=== PATIENT | female | born 1970 | race Caucasian/White ===

== ENCOUNTER 2016-05-29 04:08 | Emergency (ER) | payer SELFPAY ==
[2016-05-29 04:52] VITALS: BP 131/85
== END 2016-05-29 09:21 | disposition left against medical advice (07) ==
LOC: ED 04:08
DX: R06.02 Shortness of breath (principal); R05 Cough; Z53.21 Procedure and treatment not carried out due to patient leaving prior to being seen by health care provider

== ENCOUNTER 2019-02-24 07:25 | Emergency (ER) | payer SELFPAY ==
[2019-02-24] MEDS ORDERED: HALOPERIDOL LACTATE 5 MG/1 ML INJ IM ONE (09:09)
[2019-02-24] MEDS ORDERED: SODIUM CHLORIDE 0.9% 1000 ML 1,000 ML IV ONE (09:10)
--- NOTE | 2019-02-24 09:52 | XRay Report ---
ABDOMEN 4 VIEW(S) INDICATION / CLINICAL INFORMATION: MAIN: abdomen pain. COMPARISON: None available. FINDINGS: TUBES / LINES: None. BOWEL GAS PATTERN: No significant abnormality. FREE AIR / EXTRALUMINAL GAS: None seen. ADDITIONAL FINDINGS: No significant additional findings. IMPRESSION: 1. No significant abnormality. Signer Name: Kosta Rm MD Signed: 02/24/2019 9:47 AM Workstation Name: [id number]
[2019-02-24 10:19] LABS: Alanine Aminotransferase 41 units/L (7-56); Albumin 4.4 g/dL (3.9-5); BUN/Creatinine Ratio 40; Blood Urea Nitrogen 16 mg/dL (7-17); Calcium 9.8 mg/dL (8.4-10.2); Hemolysis Index 9
[2019-02-24] MEDS ORDERED: KETOROLAC 30 MG/1 ML INJ ONE (10:20)
[2019-02-24] MEDS ORDERED: KETOROLAC 30 MG/1 ML INJ IV ONE (10:21)
--- NOTE | 2019-02-24 11:47 | Emergency Department Report ---
ED Abdominal Pain HPI - General Chief Complaint: Abdominal Pain Stated Complaint: FALL/HEAD TRAUMA/ABD PAIN Time Seen by Provider: 02/24/19 09:08 Source: patient Mode of arrival: Ambulatory Limitations: No Limitations - History of Present Illness Initial Comments: Reports hx of chronic pancreatitis. Reports symptoms feel like past flares of pancreatitis. MD Complaint: abdominal pain -: Gradual Location: diffuse Radiation: none Migration to: no migration Severity scale (0 -10): 2 Quality: cramping Consistency: intermittent Improves With: nothing Worsens With: nothing Associated Symptoms: nausea, vomiting. denies: diarrhea, chills, constipation, dysuria, hematemesis, melena, hematuria, syncope - Related Data Previous Rx's Medication Instructions Recorded Last Taken Type HYDROcodone/APAP 5-325 [Bethany 1 each PO Q6HR PRN #12 tablet 04/19/16 Unknown Rx 5/325] Promethazine [Phenergan] 25 mg PO Q6HR PRN #20 tab 04/19/16 Unknown Rx amLODIPine 5 mg PO QDAY #30 tablet 04/19/16 Unknown Rx Dicyclomine [Bentyl] 10 mg PO QID PRN #14 capsule 02/24/19 Unknown Rx Allergies Allergy/AdvReac Type Severity Reaction Status Date / Time No Known Allergies Allergy Verified 04/15/16 13:17 ED Review of Systems ROS: Stated complaint: FALL/HEAD TRAUMA/ABD PAIN Other details as noted in HPI Other: GENERAL: No weight change, fatigue, fever, chills, or night sweats SKIN: No changes in skin or hair, no itching, no rashes, no jaundice HEAD: No trauma EYES: No blurriness, tearing, itching, acute visual loss, conjunctival discoloration, or scleral icterus EARS: No hearing loss, tinnitus, vertigo, or earache NOSE: No rhinorrhea, stuffiness, sneezing, itching, or epistaxis MOUTH: No bleeding gums, hoarseness, sore throat, or swelling CARDIAC: No new murmur, chest pain, palpitations, dyspnea on exertion, orthopnea, PND, or edema RESPIRATORY: No shortness of breath, wheeze, cough, sputum production, hemoptysis GI: Abdominal pain, nausea, vomiting. No diarrhea, constipation, hematemesis, melena, hematochezia URINARY: No frequency, urgency, polyuria, dysuria, hematuria, or incontinence MUSCULOSKELETAL: No muscle weakness, joint stiffness, decrease in range of motion, redness, swelling NEUROLOGIC: No headache, syncope, loss of sensation, numbness, tingling, tremors, weakness, paralysis, seizures HEMATOLOGIC: No anemia, easy bruising, bleeding, petechiae, or purpura ENDOCRINE: No hot or cold intolerance, sweating, polyuria, polydipsia or, polyphagia no thyroid problems PSYCHIATRIC: No change in mood, no anxiety, no depression ED Past Medical Hx - Past Medical History Previous Medical History?: Yes Hx Hypertension: Yes (11/2015) Hx Asthma: Yes Hx Tuberculosis: No Hx HIV: No Additional medical history: pancreatitis - Surgical History Past Surgical History?: Yes Additional Surgical History: LEFT knee surgery - Social History Smoking Status: Never Smoker Substance Use Type: None - Medications Home Medications: Home Medications Medication Instructions Recorded Confirmed Last Taken Type HYDROcodone/APAP 5-325 [Bethany 1 each PO Q6HR PRN #12 tablet 04/19/16 Unknown Rx 5/325] Promethazine [Phenergan] 25 mg PO Q6HR PRN #20 tab 04/19/16 Unknown Rx amLODIPine 5 mg PO QDAY #30 tablet 04/19/16 Unknown Rx Dicyclomine [Bentyl] 10 mg PO QID PRN #14 capsule 02/24/19 Unknown Rx ED Physical Exam - General Limitations: No Limitations - Other Other exam information: GENERAL: Patient in no acute distress HEAD: Normocephalic, atraumatic EYES: PERRLA, EOM intact, no scleral icterus, no conjunctival hemorrhage, visual rosario and acuity wnl NOSE: No tenderness, discharge, sinus tenderness MOUTH: No erythema, bleeding, exudate HEART: Regular rate and rhythm, no murmur, S1-S2 are auscultated, no edema, pulses are symmetric LUNGS: No respiratory distress. Bilateral breath sounds, No tachypnea, No retractions, No wheezing, rales, rhonchi ABDOMEN: Normal bowel sounds, abdomen soft, no tenderness, no rebound, no gu arding, no distention, no masses, no CVA tenderness MUSCULOSKELETAL: Normal joint range of motion, no redness, no swelling, no tenderness NEUROLOGIC: GCS 15, Alert and Oriented x3, Cranial nerves intact, normal sensation, normal strength, no cerebellar deficit, NIHSS 0 PSYCHIATRIC: Writhing in bed reporting her stomach hurts like past flares of pancreatitis. Patient distractable and while talking stops squirming. No homicidal or suicidal ideation, no anxiety, no depression, no hallucinations SKIN: Skin is warm and dry, no wounds, no rashes ED Course Vital Signs 02/24/19 07:59 Temperature 99 F Pulse Rate 105 H Respiratory 16 Rate Blood Pressure 106/62 O2 Sat by Pulse 99 Oximetry ED Medical Decision Making - Lab Data Result diagrams: 02/24/19 09:45 Laboratory Results - last 24 hr 02/24/19 09:45 Sodium 134 L Potassium 3.6 Chloride 88.8 L Carbon Dioxide 19 L Anion Gap 30 BUN 16 Creatinine 0.4 L Estimated GFR > 60 BUN/Creatinine Ratio 40 Glucose 140 H Calcium 9.8 Total Bilirubin 1.90 H AST 72 H ALT 41 Alkaline Phosphatase 121 Total Protein 7.3 Albumin 4.4 Albumin/Globulin Ratio 1.5 Lipase 295 H - Radiology Data Radiology results: report reviewed - Medical Decision Making Patient comfortable. Reports symptom improvement. Updated with results. Plan discharge with outpatient follow up. Return if any worsening. Critical care attestation.: If time is entered above; I have spent that time in minutes in the direct care of this critically ill patient, excluding procedure time. ED Disposition Clinical Impression: Pancreatitis Qualifiers: Chronicity: chronic Pancreatitis type: unspecified pancreatitis type Qualified Code(s): K86.1 - Other chronic pancreatitis Disposition: TO HOME OR SELFCARE Is pt being admited?: No Condition: Stable Instructions: Pancreatitis (ED), Abdominal Pain (ED) Prescriptions: Dicyclomine [Bentyl] 10 mg PO QID PRN #14 capsule PRN Reason: Cramping Referrals: [facility] [Provider Group] - 2-3 Days CAILIN MALIK MD [Referring] - 2-3 Days [facility] [Outside] - as needed Time of Disposition: 11:46
[2019-02-24 12:08] VITALS: BP 143/86
== END 2019-02-24 12:30 | disposition home or self-care (01) ==
LOC: ED 07:25
DX: K85.90 Acute pancreatitis without necrosis or infection, unspecified (principal); I10 Essential (primary) hypertension; J45.909 Unspecified asthma, uncomplicated; Z98.890 Other specified postprocedural states; Z79.899 Other long term (current) drug therapy
CPT/HCPCS: 36415; 74022; 80053; 83690; 96361; 96372; 96374; 99283; J1630; J1885; J7030

== ENCOUNTER 2019-07-02 12:40 | Emergency (ER) | payer SELFPAY ==
--- NOTE | 2019-07-02 13:54 | Event Note ---
ED Screening Note Date of service: 07/02/19 Time: 13:53 ED Screening Note: This 49-year-old female with a history of pancreatitis who presents ED with abdominal pain vomiting nausea Low-grade fever and tachycardia. This initial assessment/diagnostic orders/clinical plan/treatment(s) is/are subj ect to change based on patients health status, clinical progression and re- assessment by fellow clinical providers in the ED. Further treatment and workup at subsequent clinical providers discretion. Patient/guardian urged not to elope from the ED as their condition may be serious if not clinically assessed and managed. Initial orders include: CT scan, abdominal pain protocol ordered.
[2019-07-02 14:48] LABS: Basophils % (Auto) 0.5 % (0.0-1.8); Eosinophils % (Auto) 0.5 % (0.0-4.3); Hematocrit 40.7 % (30.3-42.9); Hemoglobin 13.8 gm/dl (10.1-14.3); Lymphocytes # (Auto) 0.9 K/mm3 (1.2-5.4); Lymphocytes % (Auto) 19.3 % (13.4-35.0); Mean Corpuscular HGB Conc 34 % (30-34); Mean Corpuscular Volume 97 fl (79-97); Monocytes # (Auto) 0.4 K/mm3 (0.0-0.8); Monocytes % (Auto) 9.9 % (0.0-7.3); Red Blood Count 4.22 M/mm3 (3.65-5.03); Red Cell Distribution Width 13.9 % (13.2-15.2)
[2019-07-02 14:56] LABS: Alanine Aminotransferase 87 units/L (7-56); Albumin 4.2 g/dL (3.9-5); BUN/Creatinine Ratio 40; Blood Urea Nitrogen 12 mg/dL (7-17); Calcium 8.7 mg/dL (8.4-10.2); Hemolysis Index 3
[2019-07-02 15:07] LABS: Platelet Count 36 K/mm3 (140-440)
[2019-07-02] MEDS ORDERED: MORPHINE 4 MG/1 ML INJ IV ONE (16:15)
[2019-07-02] MEDS ORDERED: ONDANSETRON 4 MG/2 ML INJ IV ONE (16:15)
[2019-07-02] MEDS ORDERED: SODIUM CHLORIDE 0.9% 1000 ML 1,000 ML IV ONE ×2 (16:15→19:33)
[2019-07-02] MEDS ORDERED: ACETAMINOPHEN 325 MG/10.15 ML ORAL LIQD UNIT DOSE PO ONE (16:16)
[2019-07-02] MEDS ORDERED: LORazepam 2 MG/ML VIAL IV PRN ×3 (16:16)
--- NOTE | 2019-07-02 16:18 | Emergency Department Report ---
<MARY ZELAYA - Last Filed: 07/02/19 23:07> ED General Adult HPI - General Chief complaint: Nausea/Vomiting/Diarrhea Stated complaint: VOMIT BLOOD Time Seen by Provider: 07/02/19 15:26 - Related Data Previous Rx's Medication Instructions Recorded Last Taken Type Promethazine [Phenergan] 25 mg PO Q6HR PRN #20 tab 04/19/16 Unknown Rx amLODIPine 5 mg PO QDAY #30 tablet 04/19/16 Unknown Rx Dicyclomine [Bentyl] 10 mg PO QID PRN #14 capsule 02/24/19 Unknown Rx Magnesium Oxide [Magnesium Oxide 400 mg PO QDAY #30 powd.pack 07/02/19 Unknown Rx 400] Metoclopramide [Reglan] 10 mg PO Q6HR PRN #30 tab 07/02/19 Unknown Rx Multivitamin with Folic Acid [Cvs 400 mcg PO QDAY #30 tablet 07/02/19 Unknown Rx One Daily Essential Tablet] Potassium Chloride 20 meq PO BID #30 packet 07/02/19 Unknown Rx chlordiazePOXIDE [Librium] 25 mg PO Q6H PRN #30 capsule 07/02/19 Unknown Rx Allergies Allergy/AdvReac Type Severity Reaction Status Date / Time No Known Allergies Allergy Verified 04/15/16 13:17 ED Past Medical Hx - Medications Home Medications: Home Medications Medication Instructions Recorded Confirmed Last Taken Type Promethazine [Phenergan] 25 mg PO Q6HR PRN #20 tab 04/19/16 Unknown Rx amLODIPine 5 mg PO QDAY #30 tablet 04/19/16 Unknown Rx Dicyclomine [Bentyl] 10 mg PO QID PRN #14 capsule 02/24/19 Unknown Rx Magnesium Oxide [Magnesium Oxide 400 mg PO QDAY #30 powd.pack 07/02/19 Unknown Rx 400] Metoclopramide [Reglan] 10 mg PO Q6HR PRN #30 tab 07/02/19 Unknown Rx Multivitamin with Folic Acid [Cvs 400 mcg PO QDAY #30 tablet 07/02/19 Unknown Rx One Daily Essential Tablet] Potassium Chloride 20 meq PO BID #30 packet 07/02/19 Unknown Rx chlordiazePOXIDE [Librium] 25 mg PO Q6H PRN #30 capsule 07/02/19 Unknown Rx ED Medical Decision Making - Lab Data Result diagrams: 07/02/19 14:10 07/02/19 14:10 Lab Results 07/02/19 07/02/19 07/02/19 Range/Units 14:10 14:10 14:10 WBC 4.5 (4.5-11.0) K/mm3 RBC 4.22 (3.65-5.03) M/mm3 Hgb 13.8 (10.1-14.3) gm/dl Hct 40.7 (30.3-42.9) % MCV 97 (79-97) fl MCH 33 H (28-32) pg MCHC 34 (30-34) % RDW 13.9 (13.2-15.2) % Plt Count 36 L (140-440) K/mm3 Lymph % (Auto) 19.3 (13.4-35.0) % [place] % (Auto) 9.9 H (0.0-7.3) % Eos % (Auto) 0.5 (0.0-4.3) % Baso % (Auto) 0.5 (0.0-1.8) % Lymph # 0.9 L (1.2-5.4) K/mm3 [place] # 0.4 (0.0-0.8) K/mm3 Eos # 0.0 (0.0-0.4) K/mm3 Baso # 0.0 (0.0-0.1) K/mm3 Seg Neutrophils % 69.8 (40.0-70.0) % Seg Neutrophils # 3.2 (1.8-7.7) K/mm3 PT (12.2-14.9) Sec. INR (0.87-1.13) D-Dimer (0-234) ng/mlDDU Sodium 140 (137-145) mmol/L Potassium 3.2 L (3.6-5.0) mmol/L Chloride 95.4 L (98-107) mmol/L Carbon Dioxide 26 (22-30) mmol/L Anion Gap 22 mmol/L BUN 12 (7-17) mg/dL Creatinine 0.3 L (0.7-1.2) mg/dL Estimated GFR > 60 ml/min BUN/Creatinine Ratio 40 % Glucose 134 H (65-100) mg/dL Lactic Acid (0.7-2.0) mmol/L Calcium 8.7 (8.4-10.2) mg/dL Magnesium (1.7-2.3) mg/dL Ferritin (13.0-400.0) ng/mL Total Bilirubin 0.80 (0.1-1.2) mg/dL AST 216 H (5-40) units/L ALT 87 H (7-56) units/L Alkaline Phosphatase 119 (35-129) units/L Lactate Dehydrogenase (91-180) units/L Total Creatine Kinase (30-135) units/L C-Reactive Protein (0.00-1.30) mg/dL Total Protein 6.9 (6.3-8.2) g/dL Albumin 4.2 (3.9-5) g/dL Albumin/Globulin Ratio 1.6 % Amylase 56 (27-131) units/L Lipase 4 L (13-60) units/L HCG, Quant (0-4) mIU/mL Urine Color (Yellow) Urine Turbidity (Clear) Urine pH (5.0-7.0) Urine Protein (Negative) mg/dL Urine Glucose (UA) (Negative) mg/dL Urine Ketones (Negative) mg/dL Urine Blood (Negative) Urine Nitrite (Negative) Urine Bilirubin (Negative) Urine Urobilinogen (<2.0) mg/dL Ur Leukocyte Esterase (Negative) Urine WBC (Auto) (0.0-6.0) /HPF Urine RBC (Auto) (0.0-6.0) /HPF U Epithel Cells (Auto) (0-13.0) /HPF Urine Mucus /HPF 07/02/19 07/02/19 07/02/19 Range/Units 16:41 16:41 16:41 WBC (4.5-11.0) K/mm3 RBC (3.65-5.03) M/mm3 Hgb (10.1-14.3) gm/dl Hct (30.3-42.9) % MCV (79-97) fl MCH (28-32) pg MCHC (30-34) % RDW (13.2-15.2) % Plt Count (140-440) K/mm3 Lymph % (Auto) (13.4-35.0) % [place] % (Auto) (0.0-7.3) % Eos % (Auto) (0.0-4.3) % Baso % (Auto) (0.0-1.8) % Lymph # (1.2-5.4) K/mm3 [place] # (0.0-0.8) K/mm3 Eos # (0.0-0.4) K/mm3 Baso # (0.0-0.1) K/mm3 Seg Neutrophils % (40.0-70.0) % Seg Neutrophils # (1.8-7.7) K/mm3 PT 13.1 (12.2-14.9) Sec. INR 0.98 (0.87-1.13) D-Dimer 642.30 H (0-234) ng/mlDDU Sodium (137-145) mmol/L Potassium (3.6-5.0) mmol/L Chloride (98-107) mmol/L Carbon Dioxide (22-30) mmol/L Anion Gap mmol/L BUN (7-17) mg/dL Creatinine (0.7-1.2) mg/dL Estimated GFR ml/min BUN/Creatinine Ratio % Glucose (65-100) mg/dL Lactic Acid (0.7-2.0) mmol/L Calcium (8.4-10.2) mg/dL Magnesium 1.30 L (1.7-2.3) mg/dL Ferritin 293.1 (13.0-400.0) ng/mL Total Bilirubin (0.1-1.2) mg/dL AST (5-40) units/L ALT (7-56) units/L Alkaline Phosphatase (35-129) units/L Lactate Dehydrogenase 263 H (91-180) units/L Total Creatine Kinase 138 H (30-135) units/L C-Reactive Protein 0.10 (0.00-1.30) mg/dL Total Protein (6.3-8.2) g/dL Albumin (3.9-5) g/dL Albumin/Globulin Ratio % Amylase (27-131) units/L Lipase (13-60) units/L HCG, Quant (0-4) mIU/mL Urine Color (Yellow) Urine Turbidity (Clear) Urine pH (5.0-7.0) Urine Protein (Negative) mg/dL Urine Glucose (UA) (Negative) mg/dL Urine Ketones (Negative) mg/dL Urine Blood (Negative) Urine Nitrite (Negative) Urine Bilirubin (Negative) Urine Urobilinogen (<2.0) mg/dL Ur Leukocyte Esterase (Negative) Urine WBC (Auto) (0.0-6.0) /HPF Urine RBC (Auto) (0.0-6.0) /HPF U Epithel Cells (Auto) (0-13.0) /HPF Urine Mucus /HPF 07/02/19 07/02/19 07/02/19 Range/Units 16:41 16:41 22:11 WBC (4.5-11.0) K/mm3 RBC (3.65-5.03) M/mm3 Hgb (10.1-14.3) gm/dl Hct (30.3-42.9) % MCV (79-97) fl MCH (28-32) pg MCHC (30-34) % RDW (13.2-15.2) % Plt Count (140-440) K/mm3 Lymph % (Auto) (13.4-35.0) % [place] % (Auto) (0.0-7.3) % Eos % (Auto) (0.0-4.3) % Baso % (Auto) (0.0-1.8) % Lymph # (1.2-5.4) K/mm3 [place] # (0.0-0.8) K/mm3 Eos # (0.0-0.4) K/mm3 Baso # (0.0-0.1) K/mm3 Seg Neutrophils % (40.0-70.0) % Seg Neutrophils # (1.8-7.7) K/mm3 PT (12.2-14.9) Sec. INR (0.87-1.13) D-Dimer (0-234) ng/mlDDU Sodium (137-145) mmol/L Potassium (3.6-5.0) mmol/L Chloride (98-107) mmol/L Carbon Dioxide (22-30) mmol/L Anion Gap mmol/L BUN (7-17) mg/dL Creatinine (0.7-1.2) mg/dL Estimated GFR ml/min BUN/Creatinine Ratio % Glucose (65-100) mg/dL Lactic Acid 1.10 (0.7-2.0) mmol/L Calcium (8.4-10.2) mg/dL Magnesium (1.7-2.3) mg/dL Ferritin (13.0-400.0) ng/mL Total Bilirubin (0.1-1.2) mg/dL AST (5-40) units/L ALT (7-56) units/L Alkaline Phosphatase (35-129) units/L Lactate Dehydrogenase (91-180) units/L Total Creatine Kinase (30-135) units/L C-Reactive Protein (0.00-1.30) mg/dL Total Protein (6.3-8.2) g/dL Albumin (3.9-5) g/dL Albumin/Globulin Ratio % Amylase (27-131) units/L Lipase (13-60) units/L HCG, Quant 1.88 (0-4) mIU/mL Urine Color Yellow (Yellow) Urine Turbidity Clear (Clear) Urine pH 6.0 (5.0-7.0) Urine Protein <15 mg/dl (Negative) mg/dL Urine Glucose (UA) Neg (Negative) mg/dL Urine Ketones 20 (Negative) mg/dL Urine Blood Sm (Negative) Urine Nitrite Neg (Negative) Urine Bilirubin Neg (Negative) Urine Urobilinogen 2.0 (<2.0) mg/dL Ur Leukocyte Esterase Neg (Negative) Urine WBC (Auto) 2.0 (0.0-6.0) /HPF Urine RBC (Auto) 9.0 (0.0-6.0) /HPF U Epithel Cells (Auto) 1.0 (0-13.0) /HPF Urine Mucus 2+ /HPF - Radiology Data [facility] [address] [place] [address] Ultrasound Report Signed Patient: DAMARI GIVENS MR#: [id number] : 1970 Acct:[id number] Age/Sex: 49 / F ADM Date: 07/02/19 Loc: ED Attending Dr: Ordering Physician: SOLIS MELGAR MD Date of Service: 07/02/19 Procedure(s): US abdomen limited Accession Number(s): [id number] cc: SOLIS MELGAR MD LIMITED RUQ ABDOMINAL ULTRASOUND INDICATION: ruq pain. COMPARISON: CT abdomen/pelvis from today. FINDINGS: Pancreas: Visualized portions show no significant abnormality. Abdominal Aorta: No significant abnormality. IVC: No significant abnormality. Liver: The liver measures 18.9 cm in length. Diffusely echogenic. Normal hepatopedal blood flow in the main portal vein. Gallbladder: No significant abnormality. Bile ducts: No significant abnormality. Common bile duct measures 3 mm. Right kidney: No significant abnormality visualized.. Free fluid: None. Additional Findings: None. IMPRESSION: 1. Hepatomegaly with diffusely echogenic liver, most commonly seen with steat osis. Signer Name: Vamshi Mcfarland MD Signed: 07/02/2019 8:07 PM Workstation Name: [email or web address] Disposition Clinical Impression: Hypokalemia, Dehydration, Hypomagnesemia, Transaminitis, Suspected 2019 novel coronavirus infection, Alcohol abuse Alcohol withdrawal Qualifiers: Complication of substance-induced condition: uncomplicated Qualified Code(s): F10.230 - Alcohol dependence with withdrawal, uncomplicated Disposition: - TO HOME OR SELFCARE Is pt being admited?: No Does the pt Need Aspirin: No Condition: Stable Instructions: COVID-19, Alcohol Withdrawal (ED) Additional Instructions: Discontinue/minimize alcohol consumption. Use the Librium medication as needed for sensation of alcohol withdrawal, and shaking. Avoid consumption of Motrin, ibuprofen, Naprosyn, Aleve. Take the magnesium and potassium supplementation as directed. Take the Reglan medication as needed for nausea, vomiting, take the multi vitamins on a daily basis as directed. Avoid consumption of Motrin, ibuprofen, Naprosyn, Aleve. Avoid consumption of heavy and/or spicy foods. Please follow-up with your primary care doctor within the next 5 to 7 days to have potassium and magnesium levels rechecked. Follow-up for outpatient detox with an outpatient psychiatric facility, such as [facility] or [place]. Advance diet as tolerated, starting with gentle fluids, bread, rice, apples, toast. Return to the emergency room right away with new pain, worsening pain, migration of pain, projectile vomiting, change in mental status, confusion, inability to tolerate liquid feeds, new, worsened or different symptoms not present on the i nitial emergency room evaluation. Recommend that patient self isolate, self quarantine, avoid traveling unless absolutely necessary, follow-up with an outpatient primary care doctor within the next 3 to 5days to rule out coronavirus/COVID-19. Patient may also go to an urgent care center, or [facility]. Long-term consumption of alcohol may cause addiction, disability, paralysis, loss of quality of life, heart failure, liver failure, kidney failure, addiction. Therefore, recommend minimizing alcohol consumption Prescriptions: Multivitamin with Folic Acid [Cvs One Daily Essential Tablet] 400 mcg PO QDAY #30 tablet chlordiazePOXIDE [Librium] 25 mg PO Q6H PRN #30 capsule PRN Reason: Alcohol Withdrawal Magnesium Oxide [Magnesium Oxide 400] 400 mg PO QDAY #30 powd.pack Potassium Chloride 20 meq PO BID #30 packet Metoclopramide [Reglan] 10 mg PO Q6HR PRN #30 tab PRN Reason: Nausea Referrals: SUSANNA SHAY MD [Staff Physician] - 3-5 Days [facility] [Provider Group] - 3-5 Days Time of Disposition: 23:10 <TALIASOLIS - Last Filed: 07/03/19 10:35> ED General Adult HPI - General PUI?: Yes Source: family, EMS ( EMS documentation not available at time of chart dictation ), RN notes reviewed, old records reviewed Mode of arrival: Wheelchair Limitations: Physical Limitation - History of Present Illness Initial comments: During the entire history and physical examination, I had on complete personal protective equipment. Patient is a 49-year-old female with a history of pancreatitis, states not , reports no menstruation x10 years, no history of abdominal surgeries, presenting to the ER with 1 week of intractable nausea and vomiting, diffuse abdominal pain, without urinary symptoms. There is no complaint of headache, neck pain, chest pain, shortness of breath. There is no loss of taste or smell. Patient denies diarrhea. Patient denies travel, reports that she has been self isolating in quarantining, and further reports no positive coronavirus contacts that she is aware of. Emesis is yellow, clear, bilious, today, blood-tinged. There is no bright red blood per rectum Her last alcoholic beverage was 1 week ago. She has not had alcohol withdrawal that she is aware of. She is not homicidal or suicidal. Symptoms constant, getting worse, abdominal pain increases with palpation and range of motion. Decreases with rest -: week(s) (1) Location: abdomen Improves with: rest Worsens with: movement ED Review of Systems ROS: Stated complaint: VOMIT BLOOD Other details as noted in HPI Constitutional: malaise, weakness Eyes: denies: eye discharge ENT: denies: congestion Respiratory: denies: wheezing Cardiovascular: denies: chest pain, syncope Gastrointestinal: abdominal pain, nausea, vomiting. denies: diarrhea, constipation, melena, hematochezia Genitourinary: denies: dysuria Musculoskeletal: denies: back pain Skin: denies: lesions Neurological: weakness Psychiatric: as per HPI Hematological/Lymphatic: as per HPI ED Past Medical Hx - Past Medical History Hx Hypertension: Yes (11/2015) Hx Diabetes: Yes Hx Psychiatric Treatment: Yes (alcohol abuse) Hx Asthma: Yes Hx Tuberculosis: No Hx HIV: No Additional medical history: pancreatitis - Surgical History Past Surgical History?: Yes Additional Surgical History: LEFT knee surgery - Social History Smoking Status: Unknown if ever smoked Substance Use Type: None ED Physical Exam - General Limitations: Physical Limitation General appearance: alert, anxious, in distress - Head Head exam: Present: atraumatic, normocephalic - Eye Eye exam: Present: normal appearance, EOMI. Absent: nystagmus - ENT ENT exam: Present: mucous membranes dry, normal external ear exam, other (Tongue fasciculations noted) - Neck Neck exam: Present: normal inspection, full ROM. Absent: tenderness, meningismus - Respiratory Respiratory exam: Present: normal lung sounds bilaterally. Absent: respiratory distress - Cardiovascular Cardiovascular Exam: Present: normal rhythm, tachycardia, normal heart sounds. Absent: systolic murmur, diastolic murmur, rubs, gallop - GI/Abdominal GI/Abdominal exam: Present: soft, tenderness (There is diffuse abdominal tenderness, most prominent in the epigastric and right upper quadrant region). Absent: distended, guarding, rebound, rigid, pulsatile mass - Extremities Exam Extremities exam: Present: normal inspection, full ROM, other (2+ pulses noted in the bilateral upper and lower extremities. There is no palpable cord. negative Homans sign. Muscular compartments are soft. The pelvis is stable.). Absent: pedal edema, calf tenderness - Back Exam Back exam: Present: normal inspection. Absent: tenderness, CVA tenderness (R), CVA tenderness (L), paraspinal tenderness, vertebral tenderness - Neurological Exam Neurological exam: Present: alert, oriented X3, other (No facial droop. Tongue midline. Extraocular movements intact bilaterally. Facial sensation intact to light touch in V1, V2, V3 distribution bilaterally. 5 and a 5 strength in 4 extremities. Sensation intact to light touch in 4 extremities.). Absent: motor sensory deficit - Psychiatric Psychiatric exam: Present: anxious. Absent: homicidal ideation, suicidal ideation - Skin Skin exam: Present: warm, ecchymosis (Abdominal ecchymosis is noted) ED Course Vital Signs 07/02/19 07/02/19 07/02/19 12:52 15:30 15:34 Temperature 100.3 F H 99.4 F Pulse Rate 115 H 104 H Respiratory 18 10 L Rate Blood Pressure 136/93 Blood Pressure [Right] O2 Sat by Pulse 95 96 Oximetry 07/02/19 07/02/19 07/02/19 15:45 16:00 16:15 Temperature Pulse Rate 111 H 93 H 89 Respiratory 17 10 L 8 L Rate Blood Pressure 141/103 136/91 133/91 Blood Pressure [Right] O2 Sat by Pulse 93 96 94 Oximetry 07/02/19 07/02/19 07/02/19 16:16 16:30 17:14 Temperature Pulse Rate 96 H 85 Respiratory 18 9 L 8 L Rate Blood Pressure 138/91 138/90 Blood Pressure [Right] O2 Sat by Pulse 97 96 97 Oximetry 07/02/19 07/02/19 07/02/19 17:30 18:00 18:30 Temperature Pulse Rate 86 90 94 H Respiratory 8 L 16 17 Rate Blood Pressure 151/103 148/98 142/95 Blood Pressure [Right] O2 Sat by Pulse 92 93 94 Oximetry 07/02/19 07/02/19 07/02/19 19:00 19:30 20:00 Temperature Pulse Rate 99 H 92 H Respiratory 12 Rate Blood Pressure 141/90 140/84 139/82 Blood Pressure [Right] O2 Sat by Pulse 93 94 Oximetry 07/02/19 07/02/19 07/02/19 20:30 20:46 21:00 Temperature Pulse Rate 89 Respiratory 12 Rate Blood Pressure 148/98 145/99 Blood Pressure [Right] O2 Sat by Pulse 94 94 Oximetry 07/02/19 07/02/19 07/02/19 21:30 22:00 22:24 Temperature Pulse Rate 92 H Respiratory Rate Blood Pressure 142/98 146/102 149/97 Blood Pressure [Right] O2 Sat by Pulse 94 94 96 Oximetry 07/02/19 07/02/19 07/02/19 22:30 23:00 23:30 Temperature Pulse Rate Respiratory Rate Blood Pressure 143/107 139/95 144/94 Blood Pressure [Right] O2 Sat by Pulse 95 93 91 Oximetry 07/03/19 07/03/19 07/03/19 00:00 00:30 01:00 Temperature Pulse Rate 90 91 H Respiratory Rate Blood Pressure 144/103 143/97 153/106 Blood Pressure [Right] O2 Sat by Pulse 93 95 85 Oximetry 07/03/19 07/03/19 07/03/19 01:54 02:00 02:32 Temperature Pulse Rate 89 Respiratory Rate Blood Pressure 153/106 153/106 153/106 Blood Pressure [Right] O2 Sat by Pulse 89 96 96 Oximetry 07/03/19 07/03/19 07/03/19 03:00 04:00 05:00 Temperature Pulse Rate 90 89 91 H Respiratory 20 20 20 Rate Blood Pressure Blood Pressure 139/76 142/89 143/89 [Right] O2 Sat by Pulse 99 98 97 Oximetry - Reevaluation(s) Reevaluation #1: 07/02/19 16:53 Differential diagnosis, including but not limited to: Colitis, pancreatitis, cholecystitis, complicated urinary tract infection, pneumonia, dehydration, alcohol withdrawal, COVID Assessment and plan: 49-year-old female with diffuse abdominal pain, fever, tachycardia, tongue fasciculations, dry mucous membranes, suspicious for abdominal infection. She may also have a component of alcohol withdrawal. We will treat her symptoms. We will obtain screening laboratory studies to risk stratify patient for potential cytokine storm. Based off of history and physical, do not suspect pulmonary embolism at this time. CT scan abdomen pelvis ordered. Right upper quadrant ultrasound ordered. She is also placed on isolation for possible COVID, although clinically I think COVID is unlikely. We will reassess after initial data points. Reevaluation #2: 07/02/19 18:52 Tachycardia improved, but not resolved. Still having nausea and vomiting. Still having alcohol withdrawal. CT scan abdomen pelvis negative for acute disease. Additional nausea medication, Valium ordered. Right upper quadrant ultrasound pending. Transaminitis appears to be chronic. This is likely alcoholic transaminitis. 07/02/19 18:53 Reevaluation #3: 07/02/19 19:34 Much improved after Valium, and Reglan. Right upper quadrant ultrasound is pending. Urinalysis is pending. Care will be transferred to the oncoming physician, Dr. Lux Zelaya, to follow-up on the aforementioned. ED Medical Decision Making - Lab Data Result diagrams: 07/02/19 14:10 07/02/19 14:10 Vital Signs 07/02/19 07/02/19 07/02/19 12:52 15:30 15:34 Temperature 100.3 F H 99.4 F Pulse Rate 115 H 104 H Respiratory 18 10 L Rate Blood Pressure 136/93 O2 Sat by Pulse 95 96 Oximetry 07/02/19 07/02/19 07/02/19 15:45 16:00 16:15 Temperature Pulse Rate 111 H 93 H 89 Respiratory 17 10 L 8 L Rate Blood Pressure 141/103 136/91 133/91 O2 Sat by Pulse 93 96 94 Oximetry Lab Results 07/02/19 07/02/19 07/02/19 Range/Units 14:10 14:10 14:10 WBC 4.5 (4.5-11.0) K/mm3 RBC 4.22 (3.65-5.03) M/mm3 Hgb 13.8 (10.1-14.3) gm/dl Hct 40.7 (30.3-42.9) % MCV 97 (79-97) fl MCH 33 H (28-32) pg MCHC 34 (30-34) % RDW 13.9 (13.2-15.2) % Plt Count 36 L (140-440) K/mm3 Lymph % (Auto) 19.3 (13.4-35.0) % [place] % (Auto) 9.9 H (0.0-7.3) % Eos % (Auto) 0.5 (0.0-4.3) % Baso % (Auto) 0.5 (0.0-1.8) % Lymph # 0.9 L (1.2-5.4) K/mm3 [place] # 0.4 (0.0-0.8) K/mm3 Eos # 0.0 (0.0-0.4) K/mm3 Baso # 0.0 (0.0-0.1) K/mm3 Seg Neutrophils % 69.8 (40.0-70.0) % Seg Neutrophils # 3.2 (1.8-7.7) K/mm3 Sodium 140 (137-145) mmol/L Potassium 3.2 L (3.6-5.0) mmol/L Chloride 95.4 L (98-107) mmol/L Carbon Dioxide 26 (22-30) mmol/L Anion Gap 22 mmol/L BUN 12 (7-17) mg/dL Creatinine 0.3 L (0.7-1.2) mg/dL Estimated GFR > 60 ml/min BUN/Creatinine Ratio 40 % Glucose 134 H (65-100) mg/dL Calcium 8.7 (8.4-10.2) mg/dL Total Bilirubin 0.80 (0.1-1.2) mg/dL AST 216 H (5-40) units/L ALT 87 H (7-56) units/L Alkaline Phosphatase 119 (35-129) units/L Total Protein 6.9 (6.3-8.2) g/dL Albumin 4.2 (3.9-5) g/dL Albumin/Globulin Ratio 1.6 % Amylase 56 (27-131) units/L Lipase 4 L (13-60) units/L - EKG Data -: EKG Interpreted by Ak EKG shows normal: sinus rhythm Rate: normal - EKG Data 07/02/19 17:34 Sinus rhythm, borderline leftward axis deviation, left anterior fascicular block, T wave inversions, QTC is prolonged, motion artifact. There is no endorsement of chest pain. The EKG is not a STEMI. - Radiology Data Radiology results: pending, image reviewed INDICATION: Nausea with vomiting. History of pancreatitis. COMPARISON: CT abdomen and pelvis without contrast from 04/15/2016. TECHNIQUE: Axial, coronal and sagittal CT imaging of the abdomen and pelvis was performed after injection of 100 cc Omnipaque [address] scans at this location are performed using CT dose reduction for ALARA by means of automated exposure control. FINDINGS: LOWER CHEST: No significant abnormality. LIVER: General steatosis is seen without an additional significant abnormality. BILIARY: No significant abnormality. PANCREAS: No significant abnormality. SPLEEN: No significant abnormality. ADRENALS: No significant abnormality. KIDNEYS AND URETERS: No significant abnormality. GI TRACT: No significant abnormality of the stomach, small bowel or colon. Unremarkable appendix. PERITONEUM: No free fluid. No free air. No fluid collection. LYMPH NODES: No significant adenopathy. VASCULATURE: No significant abnormality. URINARY BLADDER: No significant abnormality. REPRODUCTIVE ORGANS: No significant abnormality. ADDITIONAL FINDINGS: None. SKELETAL SYSTEM: No acute abnormality. Degenerative changes are seen throughout the spine and along the SI joints. IMPRESSION: 1. No acute abnormality of the abdomen or pelvis. 2. Additional findings as above. Signer Name: Floyd Bill MD Signed: 07/02/2019 4:43 PM Workstation Name: [id number] Chest and abdominal series. HISTORY: Nausea, vomiting and abdominal pain. C hest one view: Heart size is normal. The lungs are clear. Two-view abdomen: Gas is scattered throughout the abdomen in a nonobstructive fashion. Negative for free air, constipation or suspicious calcification. Signer Name: Dewey Feng MD Signed: 07/02/2019 4:14 PM Workstation Name: [id number] Critical Care Time: Yes Critical care time in (mins) excluding proc time.: 45 Critical care attestation.: If time is entered above; I have spent that time in minutes in the direct care of this critically ill patient, excluding procedure time. ED Disposition Is pt being admited?: No Does the pt Need Aspirin: No
--- NOTE | 2019-07-02 17:18 | XRay Report ---
Chest and abdominal series. HISTORY: Nausea, vomiting and abdominal pain. Chest one view: Heart size is normal. The lungs are clear. Two-view abdomen: Gas is scattered throughout the abdomen in a nonobstructive fashion. Negative for f ree air, constipation or suspicious calcification. Signer Name: Dewey Feng MD Signed: 07/02/2019 5:14 PM Workstation Name: [id number]
[2019-07-02 17:29] LABS: C-Reactive Protein 0.1 mg/dL (0.00-1.30)
[2019-07-02] MEDS ORDERED: MAGNESIUM SULFATE 2 GM/50 ML BAG IV ONE (17:32)
[2019-07-02 17:46] LABS: INR 0.98 (0.87-1.13)
--- NOTE | 2019-07-02 17:48 | Cat Scan Report ---
CT ABDOMEN AND PELVIS WITH CONTRAST INDICATION: Nausea with vomiting. History of pancreatitis. COMPARISON: CT abdomen and pelvis without contrast from 04/15/2016. TECHNIQUE: Axial, coronal and sagittal CT imaging of the abdomen and pelvis was performed after inje ction of 100 cc Omnipaque [address] scans at this location are performed using CT dose re duction for ALARA by means of automated exposure control. FINDINGS: LOWER CHEST: No significant abnormality. LIVER: General steatosis is seen without an additional significant abnormality. BILIARY: No significant abnormality. PANCREAS: No significant abnormality. SPLEEN: No significant abnormality. ADRENALS: No significant abnormality. KIDNEYS AND URETERS: No significant abnormality. GI TRACT: No significant abnormality of the stomach, small bowel or colon. Unremarkable appendix. PERITONEUM: No free fluid. No free air. No fluid collection. LYMPH NODES: No significant adenopathy. VASCULATURE: No significant abnormality. URINARY BLADDER: No significant abnormality. REPRODUCTIVE ORGANS: No significant abnormality. ADDITIONAL FINDINGS: None. SKELETAL SYSTEM: No acute abnormality. Degenerative changes are seen throughout the spine and along t he SI joints. IMPRESSION: 1. No acute abnormality of the abdomen or pelvis. 2. Additional findings as above. Signer Name: Floyd Bill MD Signed: 07/02/2019 5:43 PM Workstation Name: [id number]
[2019-07-02] MEDS: POTASSIUM CHLORIDE 10 MEQ 10 MEQ/100 ML BAG IV SCH ×4 (17:50→22:10)
[2019-07-02] MEDS ORDERED: diazePAM 10 MG/2 ML SYRINGE IV ONE (18:40)
[2019-07-02] MEDS ORDERED: METOCLOPRAMIDE 10 MG/2 ML INJ IV ONE (18:40)
[2019-07-02] MEDS ORDERED: D5W/0.45% NACL 1,000 ML IV SCH (20:00)
--- NOTE | 2019-07-02 20:11 | Ultrasound Report ---
LIMITED RUQ ABDOMINAL ULTRASOUND INDICATION: ruq pain. COMPARISON: CT abdomen/pelvis from today. FINDINGS: Pancreas: Visualized portions show no significant abnormality. Abdominal Aorta: No significant abnormality. IVC: No significant abnormality. Liver: The liver measures 18.9 cm in length. Diffusely echogenic. Normal hepatopedal blood flow in t he main portal vein. Gallbladder: No significant abnormality. Bile ducts: No significant abnormality. Common bile duct measures 3 mm. Right kidney: No significant abnormality visualized.. Free fluid: None. Additional Findings: None. IMPRESSION: 1. Hepatomegaly with diffusely echogenic liver, most commonly seen with steatosis. Signer Name: Vamshi Mcfarland MD Signed: 07/02/2019 8:07 PM Workstation Name: [id number]
[2019-07-02 22:50] LABS: Bilirubin,Urine NEG (Negative); Blood,Urine SM (Negative); Color,Urine Yellow (Yellow); Mucus,Urine 2+ /HPF; Protein,Urine <15 mg/dL mg/dL (Negative)
[2019-07-03 05:35] VITALS: BP 143/89
== END 2019-07-03 06:38 | disposition home or self-care (01) ==
LOC: ED 12:40
DX: F10.239 Alcohol dependence with withdrawal, unspecified (principal); Z20.828 Contact with and (suspected) exposure to other viral communicable diseases; E87.6 Hypokalemia; E86.0 Dehydration; E83.42 Hypomagnesemia; I10 Essential (primary) hypertension; E11.9 Type 2 diabetes mellitus without complications; J45.909 Unspecified asthma, uncomplicated; Z98.890 Other specified postprocedural states; Z79.899 Other long term (current) drug therapy
CPT/HCPCS: 36415; 74022; 74177; 76705; 80053; 81001; 82140; 82150; 82550; 82728; 83615; 83690; 83735; 84702; 85025; 85379; 85610; 86140; 87040; 87086; 93005; 96361; 96365; 96375; 99285; J2060; J2270; J2405; J2765; J3360; J3475; J3480; J7030; Q9967